=== PATIENT | female | born 2000 | race Caucasian/White ===

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

== ENCOUNTER 2022-01-22 17:11 | Emergency (ER) | payer OTHER ==
[~2022-01-22] VITALS: Wt 108.9 kg
[2022-01-22] MEDS ORDERED: CEPHALEXIN500 M1 PO (18:52)
== END 2022-01-22 19:18 | disposition home or self-care (01) ==
LOC: ED 17:11
DX: J02.9 Acute pharyngitis, unspecified (principal); Z79.899 Other long term (current) drug therapy

== ENCOUNTER 2022-02-06 21:47 | Emergency (ER) | payer OTHER ==
[~2022-02-06] VITALS: Wt 108.9 kg
[~2022-02-06 21:47] MED LIST changes: -CYMBALTA20 M1 PO; +CYMBALTA60 MG PO; +MELATONIN10 M2 PO; -MELATONIN3 MG PO
[2022-02-07] MEDS ORDERED: NAPROXEN250 MG PO (00:27)
== END 2022-02-07 00:45 | disposition home or self-care (01) ==
LOC: ED 21:47
DX: S86.912A Strain of unspecified muscle(s) and tendon(s) at lower leg level, left leg, initial encounter (principal); M25.519 Pain in unspecified shoulder; R51.9 Headache, unspecified; Z79.899 Other long term (current) drug therapy; W10.8XXA Fall (on) (from) other stairs and steps, initial encounter; Y93.89 Activity, other specified; Y92.89 Other specified places as the place of occurrence of the external cause; Y99.8 Other external cause status

== ENCOUNTER 2022-05-28 16:29 | Emergency (ER) | payer MEDICAID ==
[~2022-05-28] VITALS: Wt 113.4 kg
[~2022-05-28 16:29] MED LIST changes: +NAPROXEN250 MG PO
[2022-05-28] MEDS ORDERED: FLONASE ALLERG9.9 ML NAS (19:10)
== END 2022-05-28 19:21 | disposition home or self-care (01) ==
LOC: ED 16:29
DX: J06.9 Acute upper respiratory infection, unspecified (principal); Z98.890 Other specified postprocedural states

== ENCOUNTER 2022-07-15 13:13 | Emergency (ER) | payer OTHER ==
[~2022-07-15] VITALS: Ht 175.2 cm; Wt 108.9 kg
== END 2022-07-15 14:55 | disposition left against medical advice (07) ==
LOC: ED 13:13
DX: L02.91 Cutaneous abscess, unspecified (principal); Z53.21 Procedure and treatment not carried out due to patient leaving prior to being seen by health care provider

== ENCOUNTER 2023-02-01 15:16 | Emergency (ER) | payer OTHER ==
[~2023-02-01] VITALS: Ht 175.2 cm; Wt 108.9 kg
[2023-02-01] MEDS ORDERED: AMOX-CLAV 875-1 EACH PO (15:46)
== END 2023-02-01 15:46 | disposition home or self-care (01) ==
LOC: ED 15:16
DX: J02.9 Acute pharyngitis, unspecified (principal); R60.0 Localized edema; F90.9 Attention-deficit hyperactivity disorder, unspecified type; Z98.890 Other specified postprocedural states

== ENCOUNTER → 2023-09-03 | Outpatient (CLI) | payer OTHER ==
[~2023-09-03] MED LIST changes: +AMOX-CLAV 875-1 EACH PO
[2023-09-03 14:34] LABS: HEMATOCRIT 43.6 % (37.0-47.0); MEAN CELL VOLUME 90.5 fl (81.0-99.0); MEAN CORPUSCULAR HGB 29.5 pg (27.0-31.0); MEAN CORPUSCULAR HGB CONC 32.6 g/dl (33.0-37.0); MEAN PLATELET VOLUME 8.2 fl (9.6-12.3); RED BLOOD COUNT 4.82 10*6/uL (4.10-5.10); RED CELL DISTRI WIDTH 12.6 % (0-14.5)
[2023-09-03 15:20] LABS: ALKALINE PHOSPHATASE 77 U/L (46-116); BUN 10 mg/dl (9-23); CHLORIDE 105 mmol/L (98-107); CHOLESTEROL 182 mg/dL (<200); FREE T4 0.89 ng/dl (0.89-1.76); LDL CHOLESTEROL 125 mg/dL (9-159); POTASSIUM 3.8 mmol/L (3.4-5.1); SGPT/ALT 31 U/L (5-49); TOTAL PROTEIN 7.2 gm/dL (6.0-8.0); TRIGLYCERIDES 112 mg/dl (<150); VITAMIN D, 25-HYDROXY 52.3 ng/mL (30-100)
== END | disposition home or self-care (01) ==
LOC: LAB 14:00
PROVIDERS: ATTEND Family Medicine
DX: E78.00 Pure hypercholesterolemia, unspecified (principal); K21.9 Gastro-esophageal reflux disease without esophagitis; D64.9 Anemia, unspecified; R63.5 Abnormal weight gain

== ENCOUNTER 2023-09-18 10:02 | Emergency (ER) | payer OTHER ==
[~2023-09-18] VITALS: Ht 175.2 cm; Wt 104.3 kg
== END 2023-09-18 10:48 | disposition left against medical advice (07) ==
LOC: ED 10:02
DX: R10.9 Unspecified abdominal pain (principal); R42 Dizziness and giddiness; F90.9 Attention-deficit hyperactivity disorder, unspecified type; Z53.29 Procedure and treatment not carried out because of patient's decision for other reasons; Z98.890 Other specified postprocedural states

== ENCOUNTER 2023-10-10 20:30 | Emergency (ER) | payer OTHER ==
[~2023-10-10] VITALS: Ht 167.6 cm; Wt 113.4 kg
[2023-10-10] MEDS ORDERED: PREDNISONE10 MG PO (22:51)
[2023-10-10] MEDS ORDERED: BENADRYL ALLERG25 M5 PO (22:51)
[2023-10-10] MEDS ORDERED: predniSONE 20 MG TAB PO ONE (22:55)
== END 2023-10-11 00:36 | disposition home or self-care (01) ==
LOC: ED 20:30
DX: L25.9 Unspecified contact dermatitis, unspecified cause (principal); Z79.899 Other long term (current) drug therapy

== ENCOUNTER 2023-11-09 16:28 | Emergency (ER) | payer OTHER ==
[~2023-11-09] VITALS: Ht 175.2 cm; Wt 104.3 kg
[~2023-11-09 16:28] MED LIST changes: +BENADRYL ALLERG25 M5 PO; +PREDNISONE10 MG PO
[2023-11-09] MEDS ORDERED: BACLOFEN20 M1 PO (16:38)
[2023-11-09] MEDS ORDERED: TRAZODONE50 MG PO (16:38)
[2023-11-09] MEDS ORDERED: methylPREDNISolone sod succ 125 MG VIAL IM ONE (16:45)
[2023-11-09] MEDS ORDERED: Albuterol Sulf/Ipratropium 3 ML VIAL NEB ONE (16:45)
[2023-11-09] MEDS ORDERED: MEDROL DOSEPAK4 MG PO (18:40)
[2023-11-09] MEDS ORDERED: AVPAK AZITHROM250 M1 PO (18:40)
[2023-11-09] MEDS ORDERED: AZITHROMYCIN 250 MG TAB PO ONE (18:45)
== END 2023-11-09 18:51 | disposition home or self-care (01) ==
LOC: ED 16:28
DX: J20.9 Acute bronchitis, unspecified (principal); Z20.822 Contact with and (suspected) exposure to COVID-19; K21.9 Gastro-esophageal reflux disease without esophagitis; F90.9 Attention-deficit hyperactivity disorder, unspecified type; Z98.890 Other specified postprocedural states

== ENCOUNTER → 2023-12-31 | Outpatient (CLI) | payer OTHER ==
[~2023-12-31] MED LIST changes: +AVPAK AZITHROM250 M1 PO; +MEDROL DOSEPAK4 MG PO; +TRAZODONE50 MG PO
== END | disposition home or self-care (01) ==
LOC: LAB 13:34
PROVIDERS: ATTEND Family Medicine
DX: N92.6 Irregular menstruation, unspecified (principal)

== ENCOUNTER 2024-02-24 16:33 | Emergency (ER) | payer OTHER ==
[~2024-02-24] VITALS: Wt 108.9 kg
[2024-02-24] MEDS ORDERED: NAPROSYN500 MG PO (17:58)
== END 2024-02-24 18:09 | disposition home or self-care (01) ==
LOC: ED 16:33
DX: S93.401A Sprain of unspecified ligament of right ankle, initial encounter (principal); F90.9 Attention-deficit hyperactivity disorder, unspecified type; Z98.890 Other specified postprocedural states; X50.1XXA Overexertion from prolonged static or awkward postures, initial encounter; Y93.01 Activity, walking, marching and hiking; Y92.89 Other specified places as the place of occurrence of the external cause; Y99.8 Other external cause status

== ENCOUNTER 2025-01-22 19:39 | Emergency (ER) | payer OTHER ==
[~2025-01-22] VITALS: Ht 167.6 cm; Wt 103.9 kg
[~2025-01-22 19:39] MED LIST changes: +NAPROSYN500 MG PO
[2025-01-22] MEDS ORDERED: OMEPRAZOLE40 MG PO (20:02)
[2025-01-22] MEDS ORDERED: PREDNISONE50 MG PO (20:48)
[2025-01-22] MEDS ORDERED: predniSONE 20 MG TAB PO ONE (20:50)
== END 2025-01-22 20:54 | disposition home or self-care (01) ==
LOC: ED 19:39
DX: S76.911A Strain of unspecified muscles, fascia and tendons at thigh level, right thigh, initial encounter (principal); Z79.899 Other long term (current) drug therapy; W18.39XA Other fall on same level, initial encounter; Y93.89 Activity, other specified; Y92.89 Other specified places as the place of occurrence of the external cause; Y99.8 Other external cause status

== ENCOUNTER 2025-03-14 17:46 | Emergency (ER) | payer OTHER ==
[~2025-03-14] VITALS: Wt 103.9 kg
[~2025-03-14 17:46] MED LIST changes: +OMEPRAZOLE40 MG PO; +PREDNISONE50 MG PO
[2025-03-14] MEDS ORDERED: Acetaminophen/Oxycodone 5 MG/325 MG TABLET PO ONE (18:30)
[2025-03-14] MEDS ORDERED: Sulfamethoxazole/Trimethopri 1 TAB TAB PO ONE (18:30)
[2025-03-14] MEDS ORDERED: SEPTDS PO (18:40)
[2025-03-14] MEDS ORDERED: MELOXICAM15 MG PO (18:40)
== END 2025-03-14 18:46 | disposition home or self-care (01) ==
LOC: ED 17:46
DX: L84 Corns and callosities (principal); F90.9 Attention-deficit hyperactivity disorder, unspecified type